=== PATIENT | female | born 1975 ===

== ENCOUNTER 2018-07-27 11:13 | Emergency (ER) | payer MEDICAID, OTHER ==
[2018-07-27] MEDS ORDERED: Tdap Vaccine 0.5 ml Vial (10-64 yrs) IM ONE ×2 (11:55→12:20)
--- NOTE | 2018-07-27 11:59 | ED PDOC ---
HPI: General Adult Time Seen by Provider: 07/27/18 11:40 Chief Complaint (Nursing): Abnormal Skin Integrity Chief Complaint (Provider): left leg pain History Per: Patient (42 y/o female with left leg swelling and pain noted worsening with erythema. STates initially noted pimple that she manipulated and subsequently developed surrounding redness. Denies any fevers/chills.) Past Medical History Reviewed: Historical Data, Nursing Documentation, Vital Signs Vital Signs: Last Vital Signs Temp 98.5 F 07/27/18 11:17 Pulse 85 07/27/18 11:17 Resp 17 07/27/18 11:17 BP 121/81 07/27/18 11:17 Pulse Ox 99 07/27/18 11:59 - Medical History PMH: Asthma - Family History Family History: States: Unknown Family Hx - Home Medications Home Medications: Ambulatory Orders Medication Instructions Recorded Cephalexin [Keflex] 500 mg PO QID #28 capsule 07/27/18 Naproxen 375 mg PO Q8 PRN #21 tablet 07/27/18 Sulfamethoxazole/Trimethoprim 2 tab PO BID #28 tab 07/27/18 [Bactrim DS 800 mg-160 mg] - Allergies Allergies/Adverse Reactions: Allergies Allergy/AdvReac Type Severity Reaction Status Date / Time zimmerman Allergy SHORTNESS Verified 07/27/18 11:31 OF BREATH shellfish derived Allergy SHORTNESS Verified 07/27/18 11:31 OF BREATH Review of Systems ROS Statement: Except As Marked, All Systems Reviewed And Found Negative Physical Exam - Reviewed Nursing Documentation Reviewed: Yes Vital Signs Reviewed: Yes - Physical Exam Appears: Positive for: Well, Non-toxic, No Acute Distress Head Exam: Positive for: ATRAUMATIC, NORMAL INSPECTION, NORMOCEPHALIC Skin: Positive for: Normal Color, Warm, Rash (2.5 cm region of swelling/ darkening of skin and 5 cm surrounding region of erythema.) Eye Exam: Positive for: EOMI, Normal appearance, PERRL ENT: Positive for: Normal ENT Inspection Neck: Positive for: Normal, Painless ROM Cardiovascular/Chest: Positive for: Regular Rate, Rhythm Respiratory: Positive for: CNT, Normal Breath Sounds Gastrointestinal/Abdominal: Positive for: Normal Exam, Soft Back: Positive for: Normal Inspection Extremity: Positive for: Normal ROM Neurologic/Psych: Positive for: Alert, Oriented - ECG O2 Sat by Pulse Oximetry: 99 - Progress ED Course And Treament: tdap 0.5 ml IM x 1 dose vancomycin 1 gm iv x 1 dose MORPHINE 4 MG IV ZOFRAN 4 MG IV Procedures - Incision and Drainage Site: LEFT LEG Blade Size: 11 I & D Procedure: betadine prep, sterile dressing applied, gauze wick placed Progress: WOUND CX SENT. PRULULENT DISCHARGE EXPRESSED. WOUND PACKED WITH STERILE GUAZE Disposition - Clinical Impression Clinical Impression: Abscess, Cellulitis - Patient ED Disposition Is Patient to be Admitted: No - Disposition Disposition: Routine/Home Disposition Time: 14:18 Condition: FAIR Prescriptions: Cephalexin [Keflex] 500 mg PO QID #28 capsule Naproxen 375 mg PO Q8 PRN #21 tablet PRN Reason: Pain, Moderate (4-7) Sulfamethoxazole/Trimethoprim [Bactrim DS 800 mg-160 mg] 2 tab PO BID #28 tab Instructions: Cellulitis (Skin Infection), Adult (DC), Skin Abscess
[2018-07-27] MEDS ORDERED: Lidocaine 2% Inj (20ml) INFIL ONE (12:00)
[2018-07-27] MEDS ORDERED: Lidocaine 2% MPF (5 ml) Inj INFIL ONE (12:15)
[2018-07-27] MEDS ORDERED: Lidocaine PF 2% (5 ml) Inj (For Cardiac Arrhy) ONE (12:21)
[2018-07-27] MEDS ORDERED: Vancomycin 1 g Inj ONE (12:21)
[2018-07-27] MEDS ORDERED: Lidocaine PF 2% (5 ml) Inj (For Cardiac Arrhy) IJ ONE (12:45)
[2018-07-27] MEDS ORDERED: Morphine 4 MG/ML VIAL IVP STA (13:35)
[2018-07-27] MEDS ORDERED: Morphine 4 MG/ML VIAL ONE (13:39)
[2018-07-27 14:47] VITALS: BP 104/58; PULSE 71; RESP 14; TEMP 98.3; O2SAT 98
== END 2018-07-27 14:31 | disposition home or self-care (01) ==
LOC: H.ER 11:13
DX: L02.416 Cutaneous abscess of left lower limb (principal)
CPT/HCPCS: 10060; 87070; 87181; 90471; 90715; 96365; 96375; 99283; J2270; J2405